=== PATIENT | male | born 1965 | race Hispanic/Latino ===

== ENCOUNTER 2017-05-14 10:47 | Inpatient (IN) | payer MEDICAID ==
[~2017-05-14] VITALS: Ht 172.7 cm; Wt 117.8 kg
[~2017-05-14 10:47] MED LIST: ALPR2TAB7 PO; ASPI-1005 PO; ATOR-2 PO; CARV3.1262 PO; FURO80TA3 PO; HYDR-4068 PO; ISOSM20 PO; METF10004 PO; RANO500T2 PO; SPIR25TA4 PO; TEMA30CA PO; WARF-57 PO
[2017-05-14 11:37] LABS: BASOPHILS % (AUTO) 1.3 % (0.0-5.0); EOSINOPHILS % (AUTO) 1.2 % (0.0-8.0); HEMATOCRIT 42.8 % (42-54); MEAN CORPUSCULAR HEMOGLOBIN 27.7 pg (27.0-33.0); MEAN CORPUSCULAR HGB CONC 32.4 g/dL (32.0-36.0); MEAN CORPUSCULAR VOLUME 85.3 fL (79-99); MONOCYTES % (AUTO) 13.1 % (3.0-13.0); NEUTROPHILS % (AUTO) 66.4 % (40.0-77.0); NUCLEATED RED BLOOD CELLS 0.1 % (0.0-0.19); PLATELET COUNT (AUTO) 339 K/uL (130-400); RED BLOOD CELL COUNT(AUTO) 5.02 MIL/uL (4.50-6.20); RED CELL DISTRIBUTION WIDTH 18.2 % (11.0-15.5); WHITE BLOOD COUNT (AUTO) 8.5 K/uL (4.8-10.8)
[2017-05-14 11:46] LABS: CREATININE 1.3 mg/dL (0.5-1.5)
[2017-05-14 11:51] LABS: ALBUMIN 2.5 g/dL (3.5-5.0); BILIRUBIN,TOTAL 2.5 mg/dL (0.2-1.0)
[2017-05-14 12:15] LABS: B-TYPE NATRIURETIC PEPTIDE 762 pg/mL (0-100)
[2017-05-14 12:31] LABS: INR 3.85 (0.85-1.15); PROTHROMBIN TIME 39.4 SEC (9.6-11.6)
[2017-05-14] MEDS ORDERED: FUROSEMIDE 10 MG/ML 4ML VIAL ONE (12:58)
[2017-05-14] MEDS ORDERED: ACETAMINOPHEN 325 MG TAB PO PRN ×2 (13:00)
[2017-05-14] MEDS ORDERED: LIDOCAINE HCL-MPF 1% 2ML VIAL IVP PRN (13:00)
[2017-05-14] MEDS ORDERED: NITROGLYCERIN 0.4 MG SL TAB SL PRN (13:00)
[2017-05-14] MEDS ORDERED: ACETAMINOPHEN-CODEINE 300/30MG TAB PO PRN ×2 (13:00)
[2017-05-14] MEDS ORDERED: ONDANSETRON HCL 4 MG/2 ML VIAL IV PRN (13:00)
[2017-05-14] MEDS ORDERED: MORPHINE SULFATE 2 MG/ML 1ML SYG IV PRN (13:00)
[2017-05-14] MEDS ORDERED: POTASSIUM CHLORIDE 10% ELIXIR 20 MEQ/15 ML UDCUP PO PRN (13:00)
[2017-05-14] MEDS ORDERED: MORPHINE SULFATE 4 MG/1ML SYG IV PRN (13:00)
[2017-05-14] MEDS ORDERED: MAG HYDROX/AL HYDROX/SIMETH ES 30 ML SUSP UDCUP PO PRN (13:00)
[2017-05-14] MEDS ORDERED: POTASSIUM CHLORIDE 20MEQ/100ML 100 ML IV PRN (13:00)
[2017-05-14] MEDS ORDERED: HYDRALAZINE HCL 20 MG/ML VIAL IV PRN (13:00)
[2017-05-14] MEDS ORDERED: GUAIFENESIN-DM 200/20 MG 10 ML ONE (13:16)
[2017-05-14 16:25] LABS: APPEARANCE,URINE Clear (CLEAR); BILIRUBIN,URINE Small (NEGATIVE); COLOR,URINE Dark Yellow (YELLOW); GLUCOSE, URINE (UA) Negative (NEGATIVE); KETONES,URINE Negative (NEGATIVE); LEUKOCYTE ESTERASE ,URINE Trace (NEGATIVE); NITRATE,URINE Negative (NEGATIVE); OCCULT BLOOD,URINE Negative (NEGATIVE); PH,URINE 6.5 (5.0-8.0); PROTEIN,URINE POS 2+ (NEGATIVE); UROBILINOGEN,URINE >=8.0 mg/dL (0.2-1.0)
[2017-05-14 16:41] LABS: BACTERIA,URINE None Seen /HPF (None Seen); MUCUS,URINE Few LPF (None Seen); RBC,URINE None Seen /HPF (0-1); SQUAMOUS EPITHELIAL CELL,UR 0-2 /LPF (0-2); WBC,URINE 0-1 /HPF (0-1)
[2017-05-14] MEDS ORDERED: POTASSIUM CHLORIDE 20MEQ/100ML 200 ML IV ONE (19:37)
[2017-05-14] MEDS ORDERED: FAMOTIDINE 20MG TAB 20 MG TAB ONE (20:59)
[2017-05-14] MEDS: FAMOTIDINE 20MG TAB 20 MG TAB PO SCH (21:00)
[2017-05-14 22:33] LABS: AMPHET/METH SCREEN,URINE NEGATIVE (NEGATIVE); BARBITURATE SCREEN, URINE NEGATIVE (NEGATIVE); BENZODIAZEPINES SCREEN,URINE POSITIVE (NEGATIVE); CANNABINOID SCREEN,URINE NEGATIVE (NEGATIVE); COCAINE SCREEN,URINE POSITIVE (NEGATIVE); OPIATE SCREEN,URINE NEGATIVE (NEGATIVE); PHENCYCLIDINE SCREEN,URINE NEGATIVE (NEGATIVE)
[2017-05-15] VITALS (7 sets, daily range): BP systolic 96–120; BP diastolic 61–82
[2017-05-15] MEDS: POTASSIUM CHLORIDE 20 MEQ ERTAB PO PRN ×3 (02:23→21:07)
[2017-05-15] MEDS: FUROSEMIDE 10 MG/ML 4ML VIAL IV SCH ×2 (02:23→14:07)
[2017-05-15] MEDS: GUAIFENESIN-DM 200/20 MG 10 ML PO PRN ×4 (02:31→21:10)
[2017-05-15] MEDS: HYDROCODONE/ACETAMINOPHEN 10/325 MG TAB PO PRN ×2 (02:31→21:07)
[2017-05-15] MEDS ORDERED: SENN-77 PO (03:18)
[2017-05-15] MEDS ORDERED: LINA5TAB PO (03:18)
[2017-05-15] MEDS ORDERED: AMIO200T2 PO (03:18)
[2017-05-15] MEDS ORDERED: DIGO0.25 PO (03:18)
[2017-05-15 05:06] LABS: HEMATOCRIT 40.3 % (42-54); MEAN CORPUSCULAR HEMOGLOBIN 27.3 pg (27.0-33.0); MEAN CORPUSCULAR HGB CONC 32.5 g/dL (32.0-36.0); MEAN CORPUSCULAR VOLUME 84.1 fL (79-99); NUCLEATED RED BLOOD CELLS 0.1 % (0.0-0.19); PLATELET COUNT (AUTO) 332 K/uL (130-400); RED BLOOD CELL COUNT(AUTO) 4.79 MIL/uL (4.50-6.20); RED CELL DISTRIBUTION WIDTH 18.4 % (11.0-15.5); WHITE BLOOD COUNT (AUTO) 8.2 K/uL (4.8-10.8)
[2017-05-15 05:15] LABS: INR 4.86 (0.85-1.15); PROTHROMBIN TIME 49.5 SEC (9.6-11.6)
[2017-05-15 05:31] LABS: B-TYPE NATRIURETIC PEPTIDE 1140 pg/mL (0-100); CARBON DIOXIDE 35 mmol/L (21-32); CHLORIDE 95 mmol/L (101-111); CREATINE KINASE MB < 0.5 ng/mL (0.5-3.6); CREATINE KINASE, TOTAL 88 U/L (21-232); CREATININE 1.3 mg/dL (0.5-1.5); GLOMERULAR FILTR. RATE CALC 62 mL/min (>60); GLUCOSE,RANDOM 232 mg/dL (70-105); MYOGLOBIN 29 ng/mL (10-92); POTASSIUM 3.2 mmol/L (3.5-5.1); SODIUM SERUM 135 mmol/L (136-145); UREA NITROGEN, BLOOD 11 mg/dL (7-18)
[2017-05-15 05:50] LABS: TROPONIN I 0.75 ng/mL (0.00-0.06)
[2017-05-15] MEDS ORDERED: FLU VACC QS2017-18 36MOS UP/PF 60 MCG/0.5 ML ML IM ONE (06:30)
[2017-05-15] MEDS ORDERED: METFORMIN HCL 500 MG TABLET PO SCH (09:00)
[2017-05-15] MEDS: CARVEDILOL 3.125 MG TABLET PO SCH ×2 (09:00→21:08)
[2017-05-15] MEDS ORDERED: METOLAZONE 2.5 MG TABLET PO SCH (09:15)
[2017-05-15] MEDS ORDERED: MAGNESIUM 2GM PREMIX 50ML 50 ML IV SCH (09:15)
[2017-05-15] MEDS: FAMOTIDINE 20MG TAB 20 MG TAB PO SCH ×2 (09:22→21:06)
[2017-05-15] MEDS: SPIRONOLACTONE 25 MG TAB PO SCH (09:22)
[2017-05-15] MEDS: ISOSORBIDE MONONITRATE 20 MG TABLET PO SCH (09:23)
[2017-05-15] MEDS: RANOLAZINE 500 MG TAB.SR.12H PO SCH (09:23)
[2017-05-15] MEDS: ASPIRIN 81MG TAB.CHEW PO SCH (09:24)
[2017-05-15] MEDS: THIAMINE HCL 100 MG TABLET PO SCH (14:05)
[2017-05-15] MEDS: FOLIC ACID 1 MG TABLET PO SCH (14:05)
[2017-05-15] MEDS: INSULIN HUMULIN R 100 UNIT/ML 3ML SQ SCH ×3 (14:13→21:32)
[2017-05-15] MEDS ORDERED: DIGOXIN 250 MCG TABLET PO SCH (16:00)
[2017-05-15] MEDS ORDERED: WARFARIN SODIUM 5 MG TAB PO SCH (16:00)
[2017-05-15 19:06] LABS: CREATININE 1.5 mg/dL (0.5-1.5); POTASSIUM 3.5 mmol/L (3.5-5.1)
[2017-05-15] MEDS: DOCUSATE SODIUM PO SCH (21:00)
[2017-05-15] MEDS: SENNOSIDES PO SCH (21:00)
[2017-05-15] MEDS: ALPRAZOLAM 1 MG TAB PO PRN (21:07)
[2017-05-15] MEDS: TEMAZEPAM 30 MG CAP PO PRN (21:08)
[2017-05-15] MEDS: ATORVASTATIN CALCIUM 40 MG TABLET PO SCH (21:09)
[2017-05-15] MEDS: LACTULOSE 20 GM/30 ML UDCUP PO PRN (21:10)
[2017-05-16] MEDS: FUROSEMIDE 10 MG/ML 4ML VIAL IV SCH ×2 (00:11→12:08)
[2017-05-16] MEDS: POTASSIUM CHLORIDE 20 MEQ ERTAB PO PRN ×4 (00:12→20:46)
[2017-05-16 03:00] VITALS: BP 103/70
[2017-05-16 04:02] LABS: HEMATOCRIT 41.3 % (42-54); MEAN CORPUSCULAR HEMOGLOBIN 28.1 pg (27.0-33.0); MEAN CORPUSCULAR HGB CONC 33.1 g/dL (32.0-36.0); MEAN CORPUSCULAR VOLUME 84.7 fL (79-99); NUCLEATED RED BLOOD CELLS 0.1 % (0.0-0.19); PLATELET COUNT (AUTO) 337 K/uL (130-400); RED BLOOD CELL COUNT(AUTO) 4.88 MIL/uL (4.50-6.20); RED CELL DISTRIBUTION WIDTH 18.2 % (11.0-15.5); WHITE BLOOD COUNT (AUTO) 9.1 K/uL (4.8-10.8)
[2017-05-16 04:17] LABS: PARTIAL THROMBOPLASTIN TIME 33.4 SEC (26.3-35.5)
[2017-05-16 04:24] LABS: PROTHROMBIN TIME 41.3 SEC (9.6-11.6)
[2017-05-16 04:25] LABS: INR 4.04 (0.85-1.15)
[2017-05-16 04:33] LABS: B-TYPE NATRIURETIC PEPTIDE 1140 pg/mL (0-100)
[2017-05-16 04:44] LABS: CREATINE KINASE MB 0.5 ng/mL (0.5-3.6); CREATININE 1.4 mg/dL (0.5-1.5); MAGNESIUM 2.2 mg/dL (1.80-2.40)
[2017-05-16 04:48] LABS: TROPONIN I 0.75 ng/mL (0.00-0.06)
[2017-05-16] MEDS: INSULIN HUMULIN R 100 UNIT/ML 3ML SQ SCH ×4 (07:30→20:55)
[2017-05-16 08:00] VITALS: BP 120/75
[2017-05-16] MEDS: SENNOSIDES PO SCH ×2 (09:00→20:55)
[2017-05-16] MEDS: DOCUSATE SODIUM PO SCH ×2 (09:00→20:55)
[2017-05-16] MEDS: AMIODARONE HCL 200 MG TABLET PO SCH (09:44)
[2017-05-16] MEDS: ISOSORBIDE MONONITRATE 20 MG TABLET PO SCH (09:44)
[2017-05-16] MEDS: THIAMINE HCL 100 MG TABLET PO SCH (09:44)
[2017-05-16] MEDS: RANOLAZINE 500 MG TAB.SR.12H PO SCH (09:44)
[2017-05-16] MEDS: ASPIRIN 81MG TAB.CHEW PO SCH (09:45)
[2017-05-16] MEDS: SPIRONOLACTONE 25 MG TAB PO SCH (09:45)
[2017-05-16] MEDS: CARVEDILOL 3.125 MG TABLET PO SCH ×2 (09:45→20:37)
[2017-05-16] MEDS: FAMOTIDINE 20MG TAB 20 MG TAB PO SCH ×2 (09:45→20:37)
[2017-05-16] MEDS ORDERED: GUAIFENESIN-CODEINE 5 ML SYRUP PO PRN (09:45)
[2017-05-16] MEDS: FOLIC ACID 1 MG TABLET PO SCH (09:45)
[2017-05-16] MEDS: LINAGLIPTIN 5 MG TABLET PO SCH (09:58)
[2017-05-16 12:00] VITALS: BP 104/56
[2017-05-16] MEDS: ALPRAZOLAM 1 MG TAB PO PRN ×2 (14:58→20:37)
[2017-05-16 15:30] VITALS: BP 101/65
[2017-05-16] MEDS: DIGOXIN 125 MCG TABLET PO SCH (17:29)
[2017-05-16] MEDS: GUAIFENESIN-DM 200/20 MG 10 ML PO PRN (17:29)
[2017-05-16] MEDS: CADEXOMER IODINE 40 GM GEL TP SCH (17:29)
[2017-05-16] MEDS: GLIPIZIDE 5 MG TABLET PO SCH (17:29)
[2017-05-16 19:00] VITALS: BP 133/62
[2017-05-16] MEDS: ATORVASTATIN CALCIUM 40 MG TABLET PO SCH (20:36)
[2017-05-16 23:53] VITALS: BP 105/70
[2017-05-17] MEDS: FUROSEMIDE 10 MG/ML 4ML VIAL IV SCH (01:34)
[2017-05-17 04:00] VITALS: BP 101/70
[2017-05-17 04:02] LABS: MEAN CORPUSCULAR HEMOGLOBIN 27.9 pg (27.0-33.0); MEAN CORPUSCULAR HGB CONC 33.5 g/dL (32.0-36.0); MEAN CORPUSCULAR VOLUME 83.4 fL (79-99); NUCLEATED RED BLOOD CELLS 0.1 % (0.0-0.19); PLATELET COUNT (AUTO) 319 K/uL (130-400); RED BLOOD CELL COUNT(AUTO) 5.04 MIL/uL (4.50-6.20); RED CELL DISTRIBUTION WIDTH 18.3 % (11.0-15.5); WHITE BLOOD COUNT (AUTO) 9.9 K/uL (4.8-10.8)
[2017-05-17 04:15] LABS: INR 2.43 (0.85-1.15); PARTIAL THROMBOPLASTIN TIME 31.6 SEC (26.3-35.5); PROTHROMBIN TIME 25.1 SEC (9.6-11.6)
[2017-05-17 04:26] LABS: CREATININE 1.6 mg/dL (0.5-1.5)
[2017-05-17 04:53] LABS: POTASSIUM 2.9 mmol/L (3.5-5.1)
[2017-05-17] MEDS: INSULIN HUMULIN R 100 UNIT/ML 3ML SQ SCH ×4 (06:53→20:50)
[2017-05-17] MEDS: POTASSIUM CHLORIDE 20 MEQ ERTAB PO PRN ×3 (07:27→20:23)
[2017-05-17 08:00] VITALS: BP 105/62
[2017-05-17] MEDS: SENNOSIDES PO SCH ×2 (09:00→21:00)
[2017-05-17] MEDS: DOCUSATE SODIUM PO SCH ×2 (09:00→21:00)
[2017-05-17] MEDS: RANOLAZINE 500 MG TAB.SR.12H PO SCH (09:13)
[2017-05-17] MEDS: AMIODARONE HCL 200 MG TABLET PO SCH (09:13)
[2017-05-17] MEDS: SPIRONOLACTONE 25 MG TAB PO SCH (09:13)
[2017-05-17] MEDS: FOLIC ACID 1 MG TABLET PO SCH (09:13)
[2017-05-17] MEDS: GLIPIZIDE 5 MG TABLET PO SCH ×2 (09:13→18:11)
[2017-05-17] MEDS: ISOSORBIDE MONONITRATE 20 MG TABLET PO SCH (09:13)
[2017-05-17] MEDS: CARVEDILOL 3.125 MG TABLET PO SCH ×2 (09:16→20:34)
[2017-05-17] MEDS: ASPIRIN 81MG TAB.CHEW PO SCH (09:16)
[2017-05-17] MEDS: FAMOTIDINE 20MG TAB 20 MG TAB PO SCH ×2 (09:16→20:22)
[2017-05-17] MEDS: ALPRAZOLAM 1 MG TAB PO PRN (09:51)
[2017-05-17] MEDS: LINAGLIPTIN 5 MG TABLET PO SCH (09:51)
[2017-05-17] MEDS: THIAMINE HCL 100 MG TABLET PO SCH (09:51)
[2017-05-17 11:00] VITALS: BP 103/60
[2017-05-17] MEDS: HYDROCODONE/ACETAMINOPHEN 10/325 MG TAB PO PRN (15:06)
[2017-05-17] MEDS: GUAIFENESIN-DM 200/20 MG 10 ML PO PRN (15:06)
[2017-05-17 16:00] VITALS: BP 90/61
[2017-05-17] MEDS ORDERED: WARFARIN SODIUM 1 MG TAB PO SCH (16:00)
[2017-05-17] MEDS: DIGOXIN 125 MCG TABLET PO SCH (16:00)
[2017-05-17] MEDS: ATORVASTATIN CALCIUM 40 MG TABLET PO SCH (20:23)
[2017-05-17 20:25] VITALS: BP 95/70
[2017-05-17] MEDS: CADEXOMER IODINE 40 GM GEL TP SCH (20:35)
[2017-05-17 23:15] VITALS: BP 104/42
[2017-05-18] MEDS: POTASSIUM CHLORIDE 20 MEQ ERTAB PO PRN ×4 (01:23→16:59)
[2017-05-18 03:02] VITALS: BP 106/71
[2017-05-18 04:47] LABS: INR 2.5 (0.85-1.15); PARTIAL THROMBOPLASTIN TIME 32.2 SEC (26.3-35.5); PROTHROMBIN TIME 25.8 SEC (9.6-11.6)
[2017-05-18 04:48] LABS: CREATININE 1.3 mg/dL (0.5-1.5); POTASSIUM 3.7 mmol/L (3.5-5.1)
[2017-05-18 05:33] LABS: DIGOXIN 0.94 ng/mL (0.50-2.00)
[2017-05-18 08:00] VITALS: BP 102/69
[2017-05-18] MEDS ORDERED: PHYTONADIONE 10 MG/1 ML AMP SQ SCH (08:00)
[2017-05-18] MEDS ORDERED: METOLAZONE 2.5 MG TABLET PO SCH (08:15)
[2017-05-18] MEDS: INSULIN HUMULIN R 100 UNIT/ML 3ML SQ SCH ×4 (08:45→20:56)
[2017-05-18] MEDS ORDERED: FUROSEMIDE 40 MG TABLET PO SCH (09:00)
[2017-05-18] MEDS: DOCUSATE SODIUM PO SCH ×2 (09:00→21:00)
[2017-05-18] MEDS: SENNOSIDES PO SCH ×2 (09:00→21:00)
[2017-05-18] MEDS: FOLIC ACID 1 MG TABLET PO SCH (09:07)
[2017-05-18] MEDS: CARVEDILOL 3.125 MG TABLET PO SCH ×2 (09:07→20:32)
[2017-05-18] MEDS: SPIRONOLACTONE 25 MG TAB PO SCH (09:08)
[2017-05-18] MEDS: ISOSORBIDE MONONITRATE 20 MG TABLET PO SCH (09:08)
[2017-05-18] MEDS: GLIPIZIDE 5 MG TABLET PO SCH ×2 (09:08→16:57)
[2017-05-18] MEDS: RANOLAZINE 500 MG TAB.SR.12H PO SCH (09:08)
[2017-05-18] MEDS: AMIODARONE HCL 200 MG TABLET PO SCH (09:09)
[2017-05-18] MEDS: FAMOTIDINE 20MG TAB 20 MG TAB PO SCH ×2 (09:10→20:32)
[2017-05-18] MEDS: LINAGLIPTIN 5 MG TABLET PO SCH (09:10)
[2017-05-18] MEDS: ASPIRIN 81MG TAB.CHEW PO SCH (09:10)
[2017-05-18] MEDS: THIAMINE HCL 100 MG TABLET PO SCH (09:49)
[2017-05-18 11:00] VITALS: BP 113/74
[2017-05-18] MEDS: FUROSEMIDE 40 MG TABLET PO SCH ×2 (12:29→20:33)
[2017-05-18] MEDS: LACTULOSE 20 GM/30 ML UDCUP PO PRN (13:33)
[2017-05-18] MEDS ORDERED: SODIUM CHLORIDE 0.9% 250 ML IV ONE (14:48)
[2017-05-18 16:00] VITALS: BP 99/77
[2017-05-18] MEDS: INSULIN NPH 100 UNIT/ML 3ML SQ SCH (16:55)
[2017-05-18] MEDS: DIGOXIN 125 MCG TABLET PO SCH (16:58)
[2017-05-18] MEDS: TAMSULOSIN HCL 0.4 MG CAP.ER.24H PO SCH (17:14)
[2017-05-18 19:00] VITALS: BP 107/76
[2017-05-18] MEDS ORDERED: FUROSEMIDE 10 MG/ML 2ML VIAL ONE (19:58)
[2017-05-18] MEDS ORDERED: FUROSEMIDE 10 MG/ML 2ML VIAL IV SCH (20:00)
[2017-05-18 20:30] LABS: PROTHROMBIN TIME 20.7 SEC (9.6-11.6)
[2017-05-18] MEDS: ATORVASTATIN CALCIUM 40 MG TABLET PO SCH (20:32)
[2017-05-18 23:00] VITALS: BP 116/74
[2017-05-19] MEDS: GUAIFENESIN-DM 200/20 MG 10 ML PO PRN (00:01)
[2017-05-19] MEDS: TEMAZEPAM 30 MG CAP PO PRN ×2 (00:01→21:54)
[2017-05-19 03:00] VITALS: BP 101/54
[2017-05-19 04:19] LABS: HEMATOCRIT 44.6 % (42-54); MEAN CORPUSCULAR HEMOGLOBIN 27.8 pg (27.0-33.0); MEAN CORPUSCULAR HGB CONC 32.9 g/dL (32.0-36.0); MEAN CORPUSCULAR VOLUME 84.7 fL (79-99); NUCLEATED RED BLOOD CELLS 0.1 % (0.0-0.19); PLATELET COUNT (AUTO) 354 K/uL (130-400); RED BLOOD CELL COUNT(AUTO) 5.27 MIL/uL (4.50-6.20); RED CELL DISTRIBUTION WIDTH 18.4 % (11.0-15.5); WHITE BLOOD COUNT (AUTO) 9.2 K/uL (4.8-10.8)
[2017-05-19 04:33] LABS: INR 1.86 (0.85-1.15); PARTIAL THROMBOPLASTIN TIME 28.5 SEC (26.3-35.5); PROTHROMBIN TIME 19.3 SEC (9.6-11.6)
[2017-05-19 04:38] LABS: CREATININE 1.6 mg/dL (0.5-1.5); POTASSIUM 3.4 mmol/L (3.5-5.1)
[2017-05-19] MEDS: POTASSIUM CHLORIDE 20 MEQ ERTAB PO PRN ×2 (04:49→06:54)
[2017-05-19] MEDS: INSULIN HUMULIN R 100 UNIT/ML 3ML SQ SCH ×4 (06:22→20:48)
[2017-05-19] MEDS: LINAGLIPTIN 5 MG TABLET PO SCH (06:53)
[2017-05-19] MEDS: GLIPIZIDE 5 MG TABLET PO SCH ×2 (06:53→16:31)
[2017-05-19 07:00] VITALS: BP 116/73
[2017-05-19] MEDS: CARVEDILOL 3.125 MG TABLET PO SCH ×2 (08:34→21:07)
[2017-05-19] MEDS: AMIODARONE HCL 200 MG TABLET PO SCH (08:34)
[2017-05-19] MEDS: FAMOTIDINE 20MG TAB 20 MG TAB PO SCH ×2 (08:35→21:06)
[2017-05-19] MEDS: ISOSORBIDE MONONITRATE 20 MG TABLET PO SCH (08:35)
[2017-05-19] MEDS: THIAMINE HCL 100 MG TABLET PO SCH (08:35)
[2017-05-19] MEDS: TAMSULOSIN HCL 0.4 MG CAP.ER.24H PO SCH (08:35)
[2017-05-19] MEDS: ASPIRIN 81MG TAB.CHEW PO SCH (08:35)
[2017-05-19] MEDS: FOLIC ACID 1 MG TABLET PO SCH (08:35)
[2017-05-19] MEDS: INSULIN NPH 100 UNIT/ML 3ML SQ SCH ×2 (08:37→16:32)
[2017-05-19] MEDS: RANOLAZINE 500 MG TAB.SR.12H PO SCH (08:39)
[2017-05-19] MEDS: SENNOSIDES PO SCH ×2 (08:41→21:00)
[2017-05-19] MEDS: DOCUSATE SODIUM PO SCH ×2 (08:41→21:00)
[2017-05-19] MEDS: LACTULOSE 20 GM/30 ML UDCUP PO PRN (08:47)
[2017-05-19 11:09] VITALS: BP 94/66
[2017-05-19 15:00] VITALS: BP 92/67
[2017-05-19] MEDS: DIGOXIN 125 MCG TABLET PO SCH (16:30)
[2017-05-19] MEDS ORDERED: FLU VACC QS2017-18 36MOS UP/PF 60 MCG/0.5 ML ML IM SCH (18:45)
[2017-05-19 20:00] VITALS: BP 114/60
[2017-05-19] MEDS: ATORVASTATIN CALCIUM 40 MG TABLET PO SCH (21:06)
[2017-05-20] VITALS: BP 103/57
[2017-05-20 04:00] VITALS: BP 110/76
[2017-05-20 06:22] LABS: CREATININE 1.3 mg/dL (0.5-1.5)
[2017-05-20 06:27] LABS: INR 1.33 (0.85-1.15); PARTIAL THROMBOPLASTIN TIME 27.4 SEC (26.3-35.5); PROTHROMBIN TIME 13.9 SEC (9.6-11.6)
[2017-05-20] MEDS: POTASSIUM CHLORIDE 20 MEQ ERTAB PO PRN ×2 (06:35→09:02)
[2017-05-20] MEDS: GLIPIZIDE 5 MG TABLET PO SCH (06:35)
[2017-05-20] MEDS: LINAGLIPTIN 5 MG TABLET PO SCH (06:35)
[2017-05-20] MEDS: INSULIN HUMULIN R 100 UNIT/ML 3ML SQ SCH (06:38)
[2017-05-20 07:30] VITALS: BP 101/73
[2017-05-20] MEDS: SENNOSIDES PO SCH (09:00)
[2017-05-20] MEDS: FUROSEMIDE 40 MG TABLET PO SCH (09:00)
[2017-05-20] MEDS: DOCUSATE SODIUM PO SCH (09:00)
[2017-05-20] MEDS: INSULIN NPH 100 UNIT/ML 3ML SQ SCH (09:01)
[2017-05-20] MEDS: ASPIRIN 81MG TAB.CHEW PO SCH (09:02)
[2017-05-20 09:03] VITALS: BP 124/72
[2017-05-20] MEDS: RANOLAZINE 500 MG TAB.SR.12H PO SCH (09:03)
[2017-05-20] MEDS: CARVEDILOL 3.125 MG TABLET PO SCH (09:03)
[2017-05-20] MEDS: FOLIC ACID 1 MG TABLET PO SCH (09:03)
[2017-05-20] MEDS: THIAMINE HCL 100 MG TABLET PO SCH (09:03)
[2017-05-20] MEDS: AMIODARONE HCL 200 MG TABLET PO SCH (09:03)
[2017-05-20] MEDS: TAMSULOSIN HCL 0.4 MG CAP.ER.24H PO SCH (09:04)
[2017-05-20] MEDS: ISOSORBIDE MONONITRATE 20 MG TABLET PO SCH (09:04)
[2017-05-20] MEDS: FAMOTIDINE 20MG TAB 20 MG TAB PO SCH (09:04)
[2017-05-20] MEDS: CADEXOMER IODINE 40 GM GEL TP SCH (09:05)
== END 2017-05-20 10:25 | disposition left against medical advice (07) | DRG 194 ==
LOC: EDH 10:47 → EDHIP 10:48 → 3CH 23:46 → 3BH 05-17 03:05
PROVIDERS: ADMIT Internal Medicine Hematology & Oncology; ATTEND Internal Medicine Hematology & Oncology
PROC: 3E0234Z Introduction of Serum, Toxoid and Vaccine into Muscle, Percutaneous Approach (ICD-10-PCS; principal; 2017-05-14)
PROC: 30233N1 Transfusion of Nonautologous Red Blood Cells into Peripheral Vein, Percutaneous Approach (ICD-10-PCS; 2017-05-14)
DX: I11.0 Hypertensive heart disease with heart failure (principal); D68.9 Coagulation defect, unspecified; Z79.01 Long term (current) use of anticoagulants; I50.23 Acute on chronic systolic (congestive) heart failure; I25.10 Atherosclerotic heart disease of native coronary artery without angina pectoris; I25.5 Ischemic cardiomyopathy; E87.6 Hypokalemia; F10.10 Alcohol abuse, uncomplicated; E11.9 Type 2 diabetes mellitus without complications; F17.210 Nicotine dependence, cigarettes, uncomplicated; F14.10 Cocaine abuse, uncomplicated; F19.239 Other psychoactive substance dependence with withdrawal, unspecified; E78.5 Hyperlipidemia, unspecified; F41.9 Anxiety disorder, unspecified; N40.1 Benign prostatic hyperplasia with lower urinary tract symptoms; Z82.49 Family history of ischemic heart disease and other diseases of the circulatory system; Z95.810 Presence of automatic (implantable) cardiac defibrillator; E66.9 Obesity, unspecified; Z68.39 Body mass index [BMI] 39.0-39.9, adult; I48.2 Chronic atrial fibrillation; Z23 Encounter for immunization; R31.0 Gross hematuria; S37.39XA Other injury of urethra, initial encounter; X58.XXXA Exposure to other specified factors, initial encounter; Y93.89 Activity, other specified; Y92.89 Other specified places as the place of occurrence of the external cause; Y99.8 Other external cause status
CPT/HCPCS: 36415; 71045; 80048; 80053; 80162; 80305; 81001; 82550; 82553; 82948; 83735; 83874; 83880; 84132; 84484; 85025; 85027; 85610; 85730; 86850; 86900; 86901; 86927; 87088; 93005; A4346; J1815; J1940; J3430; J3475; J3480; J7030; P9017; Q2038

== ENCOUNTER 2017-09-11 09:23 | Inpatient (IN) | payer MEDICAID ==
[~2017-09-11] VITALS: Ht 172.7 cm; Wt 112.0 kg
[~2017-09-11 09:23] MED LIST changes: +AMIO200T5 PO; +DIGO0.25 PO; +LINA5TAB PO; +SENN-77 PO; -SPIR25TA4 PO; +SPIR25TA6 PO
[2017-09-11 09:58] VITALS: BP 101/54
[2017-09-11] MEDS ORDERED: DIGO250T84 PO (10:37)
[2017-09-11] MEDS ORDERED: SODIUM CHLORIDE 0.9% 1000ML 1,000 ML IV SCH (10:45)
[2017-09-11] MEDS ORDERED: ACETAMINOPHEN 325 MG TAB PO PRN ×3 (10:45→11:00)
[2017-09-11 10:53] LABS: HEMATOCRIT 44.8 % (42-54); MEAN CORPUSCULAR HEMOGLOBIN 26.9 pg (27.0-33.0); MEAN CORPUSCULAR HGB CONC 32.7 g/dL (32.0-36.0); MEAN CORPUSCULAR VOLUME 82.4 fL (79-99); NUCLEATED RED BLOOD CELLS 0.1 % (0.0-0.19); PLATELET COUNT (AUTO) 292 K/uL (130-400); RED BLOOD CELL COUNT(AUTO) 5.44 MIL/uL (4.50-6.20); RED CELL DISTRIBUTION WIDTH 20.3 % (11.0-15.5); WHITE BLOOD COUNT (AUTO) 8.8 K/uL (4.8-10.8)
[2017-09-11] MEDS ORDERED: HYDRALAZINE HCL 20 MG/ML VIAL IV PRN (11:00)
[2017-09-11] MEDS ORDERED: NITROGLYCERIN 0.4 MG SL TAB SL PRN (11:00)
[2017-09-11] MEDS ORDERED: POTASSIUM CHLORIDE 20MEQ/100ML 100 ML IV PRN (11:00)
[2017-09-11] MEDS ORDERED: MAG HYDROX/AL HYDROX/SIMETH ES 30 ML SUSP UDCUP PO PRN (11:00)
[2017-09-11] MEDS ORDERED: POTASSIUM CHLORIDE 10% ELIXIR 20 MEQ/15 ML UDCUP PO PRN (11:00)
[2017-09-11] MEDS ORDERED: TEMAZEPAM 30 MG CAP PO PRN (11:00)
[2017-09-11] MEDS ORDERED: MORPHINE SULFATE 4 MG/1ML SYG IV PRN ×2 (11:00)
[2017-09-11] MEDS ORDERED: POTASSIUM CHLORIDE 20 MEQ ERTAB PO PRN (11:00)
[2017-09-11] MEDS ORDERED: LIDOCAINE HCL-MPF 1% 2ML VIAL IVP PRN (11:00)
[2017-09-11] MEDS ORDERED: ONDANSETRON HCL 4 MG/2 ML VIAL IV PRN (11:00)
[2017-09-11] MEDS ORDERED: CARV12.580 PO (11:08)
[2017-09-11] MEDS ORDERED: POTA20TA82 PO (11:12)
[2017-09-11 11:14] LABS: ALBUMIN 2.8 g/dL (3.5-5.0); BILIRUBIN,TOTAL 2.2 mg/dL (0.2-1.0); CREATININE 1.2 mg/dL (0.5-1.5); POTASSIUM 3.6 mmol/L (3.5-5.1); TOTAL PROTEIN, SERUM 8.9 g/dL (6.0-8.3)
[2017-09-11 11:24] LABS: INR 3.31 (0.85-1.15); PROTHROMBIN TIME 33.9 SEC (9.6-11.6)
[2017-09-11 11:36] LABS: CREATINE KINASE MB 1.2 ng/mL (0.5-3.6)
[2017-09-11 11:39] LABS: TROPONIN I 0.73 ng/mL (0.00-0.06)
[2017-09-11 11:42] LABS: B-TYPE NATRIURETIC PEPTIDE 2930 pg/mL (0-100)
[2017-09-11] MEDS: CEFTRIAXONE SODIUM 1 GM IVP SCH (11:55)
[2017-09-11] MEDS: AZITHROMYCIN 500MG+NS 250ML 250 ML IV SCH (11:55)
[2017-09-11] MEDS: GUAIFENESIN-DM 200/20 MG 10 ML PO PRN ×3 (11:55→20:31)
[2017-09-11] MEDS: INSULIN HUMULIN R 100 UNIT/ML 3ML SQ SCH ×3 (11:59→20:30)
[2017-09-11 12:00] VITALS: BP 103/65
[2017-09-11] MEDS: ALPRAZOLAM 1 MG TAB PO PRN ×2 (12:01→20:32)
[2017-09-11] MEDS: IPRATROPIUM/ALBUTEROL SULFATE 3 ML SOLUTION IH SCH ×3 (12:34→23:56)
[2017-09-11 15:07] LABS: APPEARANCE,URINE Clear (CLEAR); BILIRUBIN,URINE Small (NEGATIVE); COLOR,URINE Dark Yellow (YELLOW); GLUCOSE, URINE (UA) 500 mg/dL (NEGATIVE); KETONES,URINE Negative (NEGATIVE); LEUKOCYTE ESTERASE ,URINE Moderate (NEGATIVE); NITRATE,URINE Negative (NEGATIVE); OCCULT BLOOD,URINE Negative (NEGATIVE); PH,URINE 6.5 (5.0-8.0); PROTEIN,URINE POS 2+ (NEGATIVE)
[2017-09-11 15:14] LABS: AMPHET/METH SCREEN,URINE NEGATIVE (NEGATIVE); BARBITURATE SCREEN, URINE NEGATIVE (NEGATIVE); BENZODIAZEPINES SCREEN,URINE NEGATIVE (NEGATIVE); CANNABINOID SCREEN,URINE NEGATIVE (NEGATIVE); COCAINE SCREEN,URINE POSITIVE (NEGATIVE); OPIATE SCREEN,URINE NEGATIVE (NEGATIVE); PHENCYCLIDINE SCREEN,URINE NEGATIVE (NEGATIVE)
[2017-09-11 15:27] LABS: BACTERIA,URINE Few /HPF (None Seen); RBC,URINE 0-1 /HPF (0-1); SQUAMOUS EPITHELIAL CELL,UR Moderate /HPF (0-2); YEAST,URINE BUDDING Rare /HPF (None Seen)
[2017-09-11 15:28] LABS: MUCUS,URINE Rare LPF (None Seen)
[2017-09-11 16:30] VITALS: BP 118/82
[2017-09-11] MEDS: DIGOXIN 250 MCG TABLET PO SCH (16:33)
[2017-09-11 19:12] LABS: CREATINE KINASE MB 0.8 ng/mL (0.5-3.6)
[2017-09-11 19:15] LABS: TROPONIN I 0.75 ng/mL (0.00-0.06)
[2017-09-11 19:30] VITALS: BP 118/78
[2017-09-11] MEDS: FAMOTIDINE 20MG TAB 20 MG TAB PO SCH (20:32)
[2017-09-11] MEDS: RANOLAZINE 500 MG TAB.SR.12H PO SCH (20:32)
[2017-09-11] MEDS: DOCUSATE SODIUM PO SCH (20:33)
[2017-09-11] MEDS: CARVEDILOL 12.5 MG TABLET PO SCH (20:33)
[2017-09-11] MEDS: SENNOSIDES PO SCH (20:33)
[2017-09-11] MEDS ORDERED: BENZONATATE 100 MG CAPSULE PO ONE (23:06)
[2017-09-11 23:10] VITALS: BP 90/64
[2017-09-12] MEDS: GUAIFENESIN-DM 200/20 MG 10 ML PO PRN ×2 (01:24→22:53)
[2017-09-12 03:00] VITALS: BP 102/70
[2017-09-12] MEDS: ALPRAZOLAM 1 MG TAB PO PRN (03:58)
[2017-09-12 05:23] LABS: MEAN CORPUSCULAR HEMOGLOBIN 26.6 pg (27.0-33.0); NUCLEATED RED BLOOD CELLS 0.1 % (0.0-0.19); PLATELET COUNT (AUTO) 280 K/uL (130-400); RED CELL DISTRIBUTION WIDTH 20.5 % (11.0-15.5); WHITE BLOOD COUNT (AUTO) 8.1 K/uL (4.8-10.8)
[2017-09-12 05:38] LABS: PARTIAL THROMBOPLASTIN TIME 41.7 SEC (26.3-35.5)
[2017-09-12 05:39] LABS: PROTHROMBIN TIME 38.1 SEC (9.6-11.6)
[2017-09-12 05:40] LABS: INR 3.72 (0.85-1.15)
[2017-09-12] MEDS: IPRATROPIUM/ALBUTEROL SULFATE 3 ML SOLUTION IH SCH ×4 (05:54→23:09)
[2017-09-12 06:02] LABS: CREATINE KINASE MB 1.1 ng/mL (0.5-3.6); CREATININE 1.2 mg/dL (0.5-1.5); DIGOXIN 1.88 ng/mL (0.50-2.00)
[2017-09-12] MEDS: INSULIN HUMULIN R 100 UNIT/ML 3ML SQ SCH ×4 (06:02→20:49)
[2017-09-12 06:04] LABS: TROPONIN I 0.77 ng/mL (0.00-0.06)
[2017-09-12 07:48] VITALS: BP 118/80
[2017-09-12] MEDS ORDERED: FUROSEMIDE 80 MG TABLET PO SCH (09:00)
[2017-09-12] MEDS: DOCUSATE SODIUM PO SCH ×2 (09:00→20:26)
[2017-09-12] MEDS: SENNOSIDES PO SCH ×2 (09:00→20:26)
[2017-09-12] MEDS: RANOLAZINE 500 MG TAB.SR.12H PO SCH ×2 (09:02→20:26)
[2017-09-12] MEDS: FAMOTIDINE 20MG TAB 20 MG TAB PO SCH ×2 (09:02→20:26)
[2017-09-12] MEDS: THIAMINE HCL 100 MG TABLET PO SCH (09:02)
[2017-09-12] MEDS: AMIODARONE HCL 200 MG TABLET PO SCH (09:02)
[2017-09-12] MEDS: CARVEDILOL 12.5 MG TABLET PO SCH ×2 (09:03→20:26)
[2017-09-12] MEDS: ASPIRIN 81MG TAB.CHEW PO SCH (09:03)
[2017-09-12] MEDS: FOLIC ACID 1 MG TABLET PO SCH (09:03)
[2017-09-12] MEDS: SPIRONOLACTONE 25 MG TAB PO SCH (09:03)
[2017-09-12] MEDS: CEFTRIAXONE SODIUM 1 GM IVP SCH (09:15)
[2017-09-12] MEDS: FUROSEMIDE 10 MG/ML 4ML VIAL IV SCH ×2 (10:30→18:14)
[2017-09-12 11:21] VITALS: BP 100/63
[2017-09-12] MEDS: AZITHROMYCIN 500MG+NS 250ML 250 ML IV SCH (12:42)
[2017-09-12] MEDS: HYDROCODONE/ACETAMINOPHEN 10/325 MG TAB PO PRN ×2 (12:56→13:59)
[2017-09-12] MEDS: DIGOXIN 250 MCG TABLET PO SCH (13:51)
[2017-09-12 16:43] VITALS: BP 103/73
[2017-09-12 20:00] VITALS: BP 100/67
[2017-09-12] MEDS: ATORVASTATIN CALCIUM 40 MG TABLET PO SCH (20:25)
[2017-09-12] MEDS ORDERED: CARVEDILOL 3.125 MG TABLET PO SCH (21:00)
[2017-09-12] MEDS: BENZONATATE 100 MG CAPSULE PO PRN (21:43)
[2017-09-12] MEDS: LACTULOSE 20 GM/30 ML UDCUP PO PRN (22:53)
[2017-09-12 23:52] VITALS: BP 105/64
[2017-09-13 04:00] VITALS: BP 102/64
[2017-09-13] MEDS: HYDROCODONE/ACETAMINOPHEN 10/325 MG TAB PO PRN ×2 (05:32→20:17)
[2017-09-13 05:38] LABS: CREATININE 1.5 mg/dL (0.5-1.5); POTASSIUM 4.1 mmol/L (3.5-5.1)
[2017-09-13 05:42] LABS: PARTIAL THROMBOPLASTIN TIME 41.6 SEC (26.3-35.5)
[2017-09-13 05:45] LABS: INR 4.41 (0.85-1.15)
[2017-09-13] MEDS: IPRATROPIUM/ALBUTEROL SULFATE 3 ML SOLUTION IH SCH ×4 (06:00→23:26)
[2017-09-13] MEDS: INSULIN HUMULIN R 100 UNIT/ML 3ML SQ SCH ×4 (06:51→22:20)
[2017-09-13 08:00] VITALS: BP 100/76
[2017-09-13] MEDS ORDERED: POTASSIUM CHLORIDE 20 MEQ ERTAB PO SCH (09:00)
[2017-09-13] MEDS: DOCUSATE SODIUM PO SCH ×2 (09:00→20:17)
[2017-09-13] MEDS: SENNOSIDES PO SCH ×2 (09:00→20:17)
[2017-09-13] MEDS ORDERED: ISOSORBIDE MONONITRATE 20 MG TABLET PO SCH (09:00)
[2017-09-13] MEDS: RANOLAZINE 500 MG TAB.SR.12H PO SCH ×2 (09:49→20:09)
[2017-09-13] MEDS: CARVEDILOL 12.5 MG TABLET PO SCH ×2 (09:49→20:10)
[2017-09-13] MEDS: THIAMINE HCL 100 MG TABLET PO SCH (09:49)
[2017-09-13] MEDS: SPIRONOLACTONE 25 MG TAB PO SCH (09:50)
[2017-09-13] MEDS: ASPIRIN 81MG TAB.CHEW PO SCH (09:50)
[2017-09-13] MEDS: FOLIC ACID 1 MG TABLET PO SCH (09:50)
[2017-09-13] MEDS: FUROSEMIDE 10 MG/ML 4ML VIAL IV SCH (09:50)
[2017-09-13] MEDS: FAMOTIDINE 20MG TAB 20 MG TAB PO SCH ×2 (09:50→20:09)
[2017-09-13] MEDS: AMIODARONE HCL 200 MG TABLET PO SCH (09:50)
[2017-09-13] MEDS: CEFTRIAXONE SODIUM 1 GM IVP SCH (10:05)
[2017-09-13] MEDS: ALPRAZOLAM 1 MG TAB PO PRN (10:47)
[2017-09-13] MEDS: LACTULOSE 20 GM/30 ML UDCUP PO PRN (10:48)
[2017-09-13 11:00] VITALS: BP 106/70
[2017-09-13] MEDS: AZITHROMYCIN 500MG+NS 250ML 250 ML IV SCH (13:00)
[2017-09-13 16:00] VITALS: BP 103/72
[2017-09-13] MEDS: DIGOXIN 250 MCG TABLET PO SCH (17:07)
[2017-09-13 20:00] VITALS: BP 102/71
[2017-09-13] MEDS: ATORVASTATIN CALCIUM 40 MG TABLET PO SCH (20:09)
[2017-09-13] MEDS: GUAIFENESIN-DM 200/20 MG 10 ML PO PRN (20:10)
[2017-09-13 23:45] VITALS: BP 100/70
[2017-09-14] MEDS: LACTULOSE 20 GM/30 ML UDCUP PO PRN (02:59)
[2017-09-14 03:00] VITALS: BP 93/69
[2017-09-14] MEDS: BENZONATATE 100 MG CAPSULE PO PRN (04:12)
[2017-09-14] MEDS: ALPRAZOLAM 1 MG TAB PO PRN (04:12)
[2017-09-14 05:06] LABS: HEMATOCRIT 43.5 % (42-54); MEAN CORPUSCULAR HEMOGLOBIN 26.8 pg (27.0-33.0); MEAN CORPUSCULAR HGB CONC 32.2 g/dL (32.0-36.0); MEAN CORPUSCULAR VOLUME 83.3 fL (79-99); NUCLEATED RED BLOOD CELLS 0.2 % (0.0-0.19); PLATELET COUNT (AUTO) 305 K/uL (130-400); RED BLOOD CELL COUNT(AUTO) 5.22 MIL/uL (4.50-6.20); RED CELL DISTRIBUTION WIDTH 20.3 % (11.0-15.5); WHITE BLOOD COUNT (AUTO) 7.6 K/uL (4.8-10.8)
[2017-09-14 05:33] LABS: PARTIAL THROMBOPLASTIN TIME 40.6 SEC (26.3-35.5)
[2017-09-14 05:36] LABS: CREATININE 1.2 mg/dL (0.5-1.5); POTASSIUM 4.9 mmol/L (3.5-5.1)
[2017-09-14 05:45] LABS: INR 4.96 (0.85-1.15); PROTHROMBIN TIME 50.5 SEC (9.6-11.6)
[2017-09-14] MEDS: IPRATROPIUM/ALBUTEROL SULFATE 3 ML SOLUTION IH SCH (06:56)
[2017-09-14] MEDS: INSULIN HUMULIN R 100 UNIT/ML 3ML SQ SCH (07:07)
[2017-09-14] MEDS ORDERED: FUROSEMIDE 80 MG TABLET PO SCH (09:00)
== END 2017-09-14 07:35 | disposition left against medical advice (07) | DRG 139 ==
LOC: 4BH 09:23
PROVIDERS: ADMIT Internal Medicine Hematology & Oncology; ATTEND Internal Medicine Hematology & Oncology
DX: J18.9 Pneumonia, unspecified organism (principal); I50.23 Acute on chronic systolic (congestive) heart failure; E44.0 Moderate protein-calorie malnutrition; D68.59 Other primary thrombophilia; I48.91 Unspecified atrial fibrillation; E11.9 Type 2 diabetes mellitus without complications; I25.10 Atherosclerotic heart disease of native coronary artery without angina pectoris; I11.0 Hypertensive heart disease with heart failure; F14.10 Cocaine abuse, uncomplicated; F10.10 Alcohol abuse, uncomplicated; E78.5 Hyperlipidemia, unspecified; Z53.21 Procedure and treatment not carried out due to patient leaving prior to being seen by health care provider; I25.5 Ischemic cardiomyopathy; Z86.73 Personal history of transient ischemic attack (TIA), and cerebral infarction without residual deficits; Z95.810 Presence of automatic (implantable) cardiac defibrillator; Z68.37 Body mass index [BMI] 37.0-37.9, adult
CPT/HCPCS: 36415; 70450; 71045; 80048; 80053; 80162; 80305; 81001; 82550; 82553; 82948; 83874; 83880; 84484; 85027; 85610; 85730; 87040; 87804; 93005; 94640; 94664; A4218; J0456; J0696; J1815; J1940; J7030

== ENCOUNTER 2018-03-11 10:43 | Emergency (ER) | payer MEDICAID ==
[~2018-03-11 10:43] MED LIST changes: -CARV3.1262 PO; -DIGO0.25 PO; +DIGO250T84 PO; -HYDR-4068 PO; +METF-445 PO; -METF10004 PO; -SENN-77 PO; -SPIR25TA6 PO; -TEMA30CA PO; +WARF7.5T49 PO
[2018-03-11] MEDS ORDERED: LEVETIRACETAM 500 MG TABLET PO ONE (11:03)
[2018-03-11 11:07] LABS: BASOPHILS % (AUTO) 1.5 % (0.0-5.0); EOSINOPHILS % (AUTO) 0.8 % (0.0-8.0); HEMATOCRIT 38.9 % (42-54); LYMPHOCYTES % (AUTO) 10.8 % (21.0-51.0); MEAN CORPUSCULAR HEMOGLOBIN 25.3 pg (27.0-33.0); MEAN CORPUSCULAR HGB CONC 31.8 g/dL (32.0-36.0); MEAN CORPUSCULAR VOLUME 79.8 fL (79-99); MONOCYTES % (AUTO) 9.1 % (3.0-13.0); NEUTROPHILS % (AUTO) 77.8 % (40.0-77.0); NUCLEATED RED BLOOD CELLS 0.1 % (0.0-0.19); PLATELET COUNT (AUTO) 271 K/uL (130-400); RED BLOOD CELL COUNT(AUTO) 4.87 MIL/uL (4.50-6.20); RED CELL DISTRIBUTION WIDTH 21.5 % (11.0-15.5); WHITE BLOOD COUNT (AUTO) 10.3 K/uL (4.8-10.8)
[2018-03-11 11:14] LABS: CREATININE 1.2 mg/dL (0.5-1.5); POTASSIUM 3.5 mmol/L (3.5-5.1)
[2018-03-11 11:17] LABS: ALBUMIN 2.7 g/dL (3.5-5.0); TOTAL PROTEIN, SERUM 8.9 g/dL (6.0-8.3)
[2018-03-11 11:29] LABS: INR 3.13 (0.85-1.15); PARTIAL THROMBOPLASTIN TIME 38.4 SEC (26.3-35.5); PROTHROMBIN TIME 32.1 SEC (9.6-11.6)
[2018-03-11 12:19] LABS: APPEARANCE,URINE CLEAR (CLEAR); BILIRUBIN,URINE MODERATE (NEGATIVE); COLOR,URINE YELLOW (YELLOW); GLUCOSE, URINE (UA) NEGATIVE (NEGATIVE); KETONES,URINE NEGATIVE (NEGATIVE); LEUKOCYTE ESTERASE ,URINE NEGATIVE (NEGATIVE); NITRATE,URINE NEGATIVE (NEGATIVE); OCCULT BLOOD,URINE NEGATIVE (NEGATIVE); PROTEIN,URINE 30 (NEGATIVE); UROBILINOGEN,URINE >=8.0 mg/dL (0.2-1.0)
[2018-03-11 13:07] LABS: BACTERIA,URINE Rare /HPF (None Seen); RBC,URINE 0-1 /HPF (0-1); SQUAMOUS EPITHELIAL CELL,UR Rare /HPF (0-2)
[2018-03-11 13:44] LABS: AMPHET/METH SCREEN,URINE NEGATIVE (NEGATIVE); BARBITURATE SCREEN, URINE NEGATIVE (NEGATIVE); BENZODIAZEPINES SCREEN,URINE POSITIVE (NEGATIVE); CANNABINOID SCREEN,URINE NEGATIVE (NEGATIVE); COCAINE SCREEN,URINE POSITIVE (NEGATIVE); OPIATE SCREEN,URINE NEGATIVE (NEGATIVE); PHENCYCLIDINE SCREEN,URINE NEGATIVE (NEGATIVE)
== END 2018-03-11 13:05 | disposition home or self-care (01) ==
LOC: EDH 10:43
DX: R56.9 Unspecified convulsions (principal); E11.9 Type 2 diabetes mellitus without complications; E78.5 Hyperlipidemia, unspecified; I48.91 Unspecified atrial fibrillation; F14.10 Cocaine abuse, uncomplicated; I11.0 Hypertensive heart disease with heart failure; I50.9 Heart failure, unspecified; Z72.0 Tobacco use
CPT/HCPCS: 36415; 80053; 80305; 81001; 82550; 84484; 85025; 85610; 85730